=== PATIENT | female | born 1980 | race Caucasian/White ===

== ENCOUNTER 2025-08-28 12:31 | Emergency (ER) | payer OTHER, SELFPAY ==
--- NOTE | 2025-08-28 12:48 | ED_ITS ---
HPI - URI/Sore Throat General Chief Complaint: Upper Respiratory Infection Stated Complaint: Strep Symptoms Time Seen by Provider: 08/28/25 12:47 Patient presents to the [facility] with complaints of significant sore throat with swollen lymph nodes and headache. Patient noted seeing primary care doctor about 5 days ago but had a significant nasal congestion, nasal drainage, cough and was believed to have a viral illness noted they did send in an antibiotic she felt worse in the next few days will. If patient noted she did get this filled and had this at home but when she backed up to come here for family did not bring the antibiotic. Patient reports very susceptible to strep and it is with this feels like. Denies fever, chills, body aches, shortness of breath, difficulty swallowing, nausea, vomiting diarrhea. Related Data Home Medications ?Medication ?Instructions ?Recorded ?Confirmed ?Last Taken ?Type Dupixent Syringe 08/28/25 Unknown History Propecia 08/28/25 Unknown History Prozac 08/28/25 Unknown History propranolol 08/28/25 Unknown History Allergies Allergy/AdvReac Type Severity Reaction Status Date / Time No Known Allergies Allergy Verified 08/28/25 12:49 Review of Systems Constitutional: Constitutional: Reports as per HPI, Denies chills, Reports fatigue, Denies fever(s) and Denies weakness Eyes: Eyes: Reports no additional eye complaints ENT: Reports as per HPI, Denies vertigo, Denies dizziness, Reports nasal congestion and Reports sore throat Cardiovascular: Cardiovascular: Reports no additional cardiovascular complaints Respiratory: Respiratory: Reports as per HPI, Denies chest congestion, Reports cough, Denies dyspnea and Denies wheezing Gastrointestinal: Gastrointestinal: Reports no additional gastrointestinal complaints Genitourinary: Genitourinary: Reports no additional female genitourinary complaints Musculoskeletal: Musculoskeletal: Reports as per HPI, Denies back pain and Denies myalgias Integumentary/Breasts: Skin/Breast: Reports as per HPI, Denies erythema, Denies rash and Denies skin ulcer Neurologic: Reports as per HPI, Denies vertigo, Denies dizziness, Reports headache(s), Denies numbness and Denies weakness Psychiatric: Psychiatric: Reports no additional psychiatric complaints Endocrine: Endocrine: Reports no additional endocrine complaints Hematologic/Lymphatic: Hematologic/Lymphatic: Reports no additional hematologic/lymphatic complaints Allergic/Immunologic: Allergic/Immunologic: Reports no additional allergic/immunologic complaints Exam Const: General: healthy appearing and no acute distress Nutritional Appearance: well nourished Orientation/consciousness: patient oriented x3 Limitations: no limitations HENMT: Head: normal to inspection Ears: external ears normal and TM's normal bilaterally Face/Nose/Sinus: Normal external nose present, Normal nares present and no nasal discharge noted Face and sinus: normal facial exam and sinuses nontender Mouth: Yes Normal oral and palatal mucosa present, Yes lip normal and Yes moist mucous membranes Throat: posterior oropharynx abnormal ( moderate erythema with edema and exudate) Neck: Neck: normal visual inspection and no lymphadenopathy Resp: Effort & Inspection: normal respiratory effort Auscultation: clear to auscultation bilaterally Cardio: Rate: regular rate Rhythm: regular rhythm Skin: General skin exam: normal color Rashes: no rashes Wounds: no wounds Neuro: General: patient oriented x3 Speech: normal speech Gait exam (Neuro): Normal gait present Psych: Mental Status: mental status grossly normal Affect: normal affect Attitude: cooperative Course Course Level of Care: Express Care Visit Vital Signs Vital signs: Vital Signs Temperature 97.6 F 08/28/25 12:51 Pulse Rate 69 08/28/25 12:51 Respiratory Rate 16 08/28/25 12:51 Blood Pressure 139/77 08/28/25 12:51 Pulse Oximetry 100 08/28/25 12:51 Oxygen Delivery Room Air 08/28/25 12:51 Temperature 97.6 F 08/28/25 12:51 Pulse Rate 69 08/28/25 12:51 Respiratory Rate 16 08/28/25 12:51 Blood Pressure 139/77 08/28/25 12:51 Pulse Oximetry 100 08/28/25 12:51 Oxygen Delivery Room Air 08/28/25 12:51 [facility] Narrative Medical decision making narrative: Strep positive The patient was evaluated by myself in the express care. History is obtained from patient who is an independent historian and physical exam was performed. Available medical records were reviewed at this time. Exam findings show no acute concerns or changes; patient is non-toxic appearing and is in no distress. Patient is appropriate for outpatient treatment and follow-up. I have evaluated and discussed social determinants of health with the patient that could potentially impact subsequent diagnosis and treatment plans. Differential diagnosis and treatment plan were discussed with the patient. Patient agrees with discussion and after shared medical decision making agrees with plan of care. All questions were answered to the patient's satisfaction. Differential Diagnosis Differential Diagnosis: influenza, sinusitis, upper respiratory infection, COVID, strep, pharyngitis Medical Records I have reviewed the following patient records and this information was taken into consideration when formulating the assessment and plan.: previous labs, previous ER visits, previous hospitalizations and previous clinic visits Lab Data MDM Lab Attestation statement: I personally reviewed the patient's lab results. Labs: Lab Results 08/28/25 Range/Units 12:58 POC Grp A Strep Screen Positive (Negative) Discharge Plan Discharge Clinical Impression: Strep pharyngitis Patient Disposition: Home Condition: Stable Instructions: Antibiotic Form, Strep Throat (DC) Additional Instructions: After 24 hours on antibiotics throw tooth brush away and start using a new one. Do not share drinks. Take Motrin alternating with Tylenol for pain and fever alternating every 4 hours. Increase fluids, avoid caffeine. Follow up with Primary provider if not getting better this week Patient Language: Kiswahili Prescriptions: New amoxicillin 875 mg tablet 875 mg PO Q12H Qty: 20 0RF fluconazole 150 mg tablet 150 mg PO Q72H Qty: 2 0RF No Action Propecia propranolol Prozac Dupixent Syringe Follow-up/Referrals: PHYSICIAN,INTERNATIONAL LOGISTICS ANALYST [Primary Care Provider, Internal Medicine] Time of Disposition: 12:59
[2025-08-28 12:51] VITALS: BP 139/77; PULSE 69; RESP 16; TEMP 36.4; O2SAT 100
[2025-08-28 13:01] LABS: EDSTREPNEGPOS1 Positive (Negative)
== END 2025-08-28 13:03 | disposition home or self-care (01) ==
PROVIDERS: Emergency Provider Nurse Practitioner Family
DX: J02.0 Streptococcal pharyngitis (principal)
CPT/HCPCS: 87880; 99213; G0463